=== PATIENT | female | born 1960 | race Caucasian/White ===

== ENCOUNTER → 2016-06-30 | Outpatient (CLI) | payer OTHER ==
[2016-06-30 12:29] LABS: BASO # 0.1 (0.0-0.2); BASO % 1.5 % (0.0-2.0); EOS # 0.2 (0.0-0.7); EOS % 3.9 % (0-4.0); GRAN # 3.1 (1.4-6.5); GRAN % 52.9 % (42.2-75.2); HEMATOCRIT 41.4 % (37.0-47.0); HEMOGLOBIN 13.8 g/dl (12.5-16.0); LYMPH % 33.8 % (20.0-51.0); MEAN CELL VOLUME 87 fl (80.0-100.0); MEAN CORPUSCULAR HEMOGLOBIN 29 pg (27.0-31.0); MEAN CORPUSCULAR HGB CONC 33 g/dl (33.0-37.0); MEAN PLATELET VOLUME 9.8 fl (7.4-10.4); MONO # 0.5 (0.1-0.6); MONO % 7.7 % (1.7-9.3); PLATELET COUNT 327 K/mm3 (130-400); RED BLOOD COUNT 4.77 M/mm3 (4.10-5.30); WHITE BLOOD COUNT 5.9 K/mm3 (4.8-10.8)
[2016-06-30 12:34] LABS: PH 5 (5-8); URINE APPEARANCE Hazy; URINE BACTERIA Rare /hpf; URINE BILIRUBIN Negative (NEGATIVE); URINE BLOOD Negative (NEGATIVE); URINE COLOR Yellow; URINE GLUCOSE 3+ (NEGATIVE); URINE KETONE Negative (NEGATIVE); URINE RBC 0-2 /hpf; URINE UROBILINOGEN Negative (NEGATIVE); URINE WBC 0-2 /hpf
[2016-06-30 12:58] LABS: ADJUSTED CALCIUM 9.5 mg/dL (8.4-10.2); ALBUMIN 4.5 gm/dL (3.5-5.0); BILIRUBIN,TOTAL 0.8 mg/dL (0.0-1.0); CALCIUM 9.9 mg/dL (8.4-10.2); CREATININE, serum 0.75 mg/dL (0.52-1.25); TOTAL PROTEIN 7.4 gm/dL (6.4-8.2)
[2016-06-30 13:34] LABS: THYROID STIMULATING HORMONE 1.56 uIU/mL (0.465-4.680)
[2016-07-02 21:51] LABS: CREATININE OTHER SOURCE 55 mg/dL (())
== END ==
LOC: COL.LAB 11:36
PROVIDERS: Internal Medicine
DX: Z00.00 Encounter for general adult medical examination without abnormal findings (principal); Z11.59 Encounter for screening for other viral diseases; E11.9 Type 2 diabetes mellitus without complications

== ENCOUNTER → 2016-12-30 | Outpatient (CLI) | payer OTHER | LOC: COL.LAB 15:02 | DX: E11.42 Type 2 diabetes mellitus with diabetic polyneuropathy (principal) ==

== ENCOUNTER → 2017-07-31 | Outpatient (CLI) | payer OTHER ==
[2017-07-31 16:55] LABS: COLLECTION METHOD CLEAN CATCH
[2017-07-31 16:55] LABS: BASO # 0.1 (0.0-0.2); BASO % 1.2 % (0.0-2.0); EOS # 0.4 (0.0-0.7); EOS % 4.6 % (0-4.0); GRAN # 5.7 (1.4-6.5); GRAN % 66.9 % (42.2-75.2); HEMATOCRIT 42.4 % (37.0-47.0); HEMOGLOBIN 14.3 g/dl (12.5-16.0); LYMPH # 1.8 (1.2-3.4); LYMPH % 21.1 % (20.0-51.0); MEAN CELL VOLUME 88 fl (80.0-100.0); MEAN CORPUSCULAR HEMOGLOBIN 30 pg (27.0-31.0); MEAN CORPUSCULAR HGB CONC 34 g/dl (33.0-37.0); MEAN PLATELET VOLUME 9.4 fl (7.4-10.4); MONO # 0.5 (0.1-0.6); MONO % 5.7 % (1.7-9.3); PLATELET COUNT 318 K/mm3 (130-400); RED BLOOD COUNT 4.83 M/mm3 (4.10-5.30); REDCELL DISTRIBUTION WIDTH-CV 13.1 % (11.5-14.5)
[2017-07-31 17:04] LABS: MUCOUS Present /lpf; PH 7 (5-8); URINE APPEARANCE Clear; URINE BACTERIA Many /hpf; URINE BILIRUBIN Negative (NEGATIVE); URINE BLOOD Negative (NEGATIVE); URINE COLOR Yellow; URINE GLUCOSE Negative (NEGATIVE); URINE KETONE Negative (NEGATIVE); URINE LEUKOCYTE ESTERASE 2+ (NEGATIVE); URINE NITRATE Negative (NEGATIVE); URINE PROTEIN(semi-quant) Negative (NEGATIVE); URINE RBC None Seen /hpf; URINE UROBILINOGEN Negative (NEGATIVE)
[2017-07-31 17:12] LABS: ALBUMIN 4.9 gm/dL (3.5-5.0); BILIRUBIN,TOTAL 0.4 mg/dL (0.0-1.0); CALCIUM 9.6 mg/dL (8.4-10.2); CREATININE, serum 0.61 mg/dL (0.52-1.25); POTASSIUM 4.4 mmol/L (3.4-5.0); TOTAL PROTEIN 7.6 gm/dL (6.4-8.2)
[2017-07-31 17:40] LABS: THYROID STIMULATING HORMONE 1.59 uIU/mL (0.465-4.680)
[2017-08-01 00:48] LABS: URINE MICROALBUMIN 9.7 mg/dL (0.0-1.7)
== END ==
LOC: COL.LAB 15:39
PROVIDERS: Internal Medicine
DX: Z00.00 Encounter for general adult medical examination without abnormal findings (principal); E11.42 Type 2 diabetes mellitus with diabetic polyneuropathy

== ENCOUNTER → 2017-11-04 | Outpatient (CLI) | payer OTHER | LOC: COL.LAB 11:29 | DX: Z01.812 Encounter for preprocedural laboratory examination (principal) ==

== ENCOUNTER 2017-11-06 11:13 | Outpatient (RCR) | payer OTHER | END 2017-11-07 08:54 | disposition home or self-care (01) | LOC: WSPT 11:13 | DX: Z01.818 Encounter for other preprocedural examination (principal); M17.12 Unilateral primary osteoarthritis, left knee ==

== ENCOUNTER 2017-12-26 15:14 | Inpatient (IN) | payer OTHER ==
[~2017-12-26] VITALS: Ht 170.2 cm; Wt 124.0 kg
[2018-01-13] MEDS ORDERED: ZESTORETIC 25 M1 TAB PO (23:36)
[2018-01-13] MEDS ORDERED: LIPITOR20 MG PO (23:36)
[2018-01-13] MEDS ORDERED: COREG12.5 MG PO (23:37)
[2018-01-13] MEDS ORDERED: NORVASC 10MG10 MG PO (23:37)
[2018-01-13] MEDS ORDERED: ULTRAM 50MG TAB50 MG PO (23:38)
[2018-01-13] MEDS ORDERED: BYDUREON P2 MG/0.65 SQ (23:38)
[2018-01-13] MEDS ORDERED: TRESIBA FL200 UNIT/1 SQ (23:39)
[2018-01-13] MEDS ORDERED: GLUCOPHAGE1000 MG PO (23:40)
[2018-01-14] VITALS (12 sets, daily range): BP systolic 124–168; BP diastolic 55–80; PULSE 62–77; TEMP 97.6–98.8
[2018-01-15 03:28] VITALS: BP 157/68; PULSE 75; TEMP 99
[2018-01-15 07:32] LABS: HEMATOCRIT 39.3 % (37.0-47.0); HEMOGLOBIN 13.2 g/dl (12.5-16.0)
[2018-01-15 08:01] VITALS: BP 143/72; PULSE 80; TEMP 99
[2018-01-15 11:47] VITALS: BP 133/59; PULSE 63; TEMP 97.6
[2018-01-15 16:19] VITALS: BP 122/50; PULSE 69; TEMP 97.7
[2018-01-15 19:15] VITALS: BP 109/49; PULSE 68; TEMP 98.4
[2018-01-16 00:20] VITALS: BP 104/50; PULSE 72; TEMP 98.5
[2018-01-16 04:44] VITALS: BP 108/57; PULSE 76; TEMP 98
[2018-01-16 07:27] LABS: HEMATOCRIT 33.9 % (37.0-47.0); HEMOGLOBIN 11.1 g/dl (12.5-16.0)
[2018-01-16 07:59] VITALS: BP 113/50; PULSE 72; TEMP 98.7
[2018-01-16 12:23] VITALS: BP 115/54; PULSE 72; TEMP 98.1
[2018-01-16 15:55] VITALS: BP 119/51; PULSE 75; TEMP 98.2
[2018-01-16 20:11] VITALS: BP 115/62; PULSE 76; TEMP 98.6
[2018-01-17 04:41] VITALS: BP 145/67; PULSE 81; TEMP 98.6
[2018-01-17 07:29] LABS: HEMOGLOBIN 11.2 g/dl (12.5-16.0)
[2018-01-17 07:32] LABS: HEMATOCRIT 33.1 % (37.0-47.0)
[2018-01-17 08:48] VITALS: BP 131/70; PULSE 82; TEMP 98.3
[2018-01-17 12:40] VITALS: BP 99/58; PULSE 71; TEMP 98.2
== END 2018-01-17 15:58 | disposition home or self-care (01) | DRG 470 ==
LOC: JCC 01-14 05:17
PROVIDERS: Orthopaedic Surgery Sports Medicine
PROC: 0SRD0J9 Replacement of Left Knee Joint with Synthetic Substitute, Cemented, Open Approach (ICD-10-PCS; principal; 2018-01-14 08:00)
DX: M17.12 Unilateral primary osteoarthritis, left knee (principal); I10 Essential (primary) hypertension; E11.9 Type 2 diabetes mellitus without complications; Z87.891 Personal history of nicotine dependence
CPT/HCPCS: A9284; C1713; C1776; J1170; J1815; J1885; J2250; J2405; J2704; J2765; J3010; J7030

== ENCOUNTER 2018-01-01 13:32 | Outpatient (RCR) | payer OTHER ==
[2018-01-13] MEDS ORDERED: LIPITOR20 MG PO (23:36)
[2018-01-13] MEDS ORDERED: ZESTORETIC 25 M1 TAB PO (23:36)
[2018-01-13] MEDS ORDERED: NORVASC 10MG10 MG PO (23:37)
[2018-01-13] MEDS ORDERED: COREG12.5 MG PO (23:37)
[2018-01-13] MEDS ORDERED: ULTRAM 50MG TAB50 MG PO (23:38)
[2018-01-13] MEDS ORDERED: BYDUREON P2 MG/0.65 SQ (23:38)
[2018-01-13] MEDS ORDERED: TRESIBA FL200 UNIT/1 SQ (23:39)
[2018-01-13] MEDS ORDERED: GLUCOPHAGE1000 MG PO (23:40)
== END 2018-01-21 08:25 | disposition home or self-care (01) ==
LOC: WSPT 13:32
DX: Z01.818 Encounter for other preprocedural examination (principal)

== ENCOUNTER → 2018-01-12 | Outpatient (CLI) | payer OTHER ==
[~2018-01-12] MED LIST: BYDUREON P2 MG/0.65 SQ; COREG12.5 MG PO; GLUCOPHAGE1000 MG PO; LIPITOR20 MG PO; NORVASC 10MG10 MG PO; TRESIBA FL200 UNIT/1 SQ; ULTRAM 50MG TAB50 MG PO; ZESTORETIC 25 M1 TAB PO
== END ==
LOC: COL.LAB 15:05
DX: Z01.812 Encounter for preprocedural laboratory examination (principal)

== ENCOUNTER 2018-03-13 11:00 | Outpatient (RCR) | payer BC, OTHER | END 2018-03-13 11:55 | disposition home or self-care (01) | LOC: WSC 11:00 | DX: Z47.1 Aftercare following joint replacement surgery (principal); Z96.652 Presence of left artificial knee joint | CPT/HCPCS: G0283-GP ==

== ENCOUNTER → 2018-04-15 | Outpatient (CLI) | payer BC, OTHER | LOC: COL.LAB 21:00 | DX: E11.42 Type 2 diabetes mellitus with diabetic polyneuropathy (principal) ==

== ENCOUNTER → 2018-08-24 | Outpatient (CLI) | payer BC ==
[2018-08-24 14:16] LABS: COLLECTION METHOD CLEAN CATCH
[2018-08-24 14:18] LABS: BASO # 0.1 (0.0-0.2); BASO % 1.4 % (0.0-2.0); EOS # 0.3 (0.0-0.7); EOS % 5.1 % (0-4.0); GRAN # 4.1 (1.4-6.5); GRAN % 65.9 % (42.2-75.2); HEMATOCRIT 41.3 % (37.0-47.0); HEMOGLOBIN 13.9 g/dl (12.5-16.0); LYMPH # 1.1 (1.2-3.4); MEAN CELL VOLUME 84 fl (80.0-100.0); MEAN CORPUSCULAR HEMOGLOBIN 28 pg (27.0-31.0); MEAN CORPUSCULAR HGB CONC 34 g/dl (33.0-37.0); MEAN PLATELET VOLUME 9.4 fl (7.4-10.4); MONO # 0.6 (0.1-0.6); MONO % 9.1 % (1.7-9.3); PLATELET COUNT 313 K/mm3 (130-400); RED BLOOD COUNT 4.91 M/mm3 (4.10-5.30); REDCELL DISTRIBUTION WIDTH-CV 12.9 % (11.5-14.5)
[2018-08-24 14:21] LABS: MUCOUS Present /lpf; PH 5 (5-8); SQUAMOUS EPITHELIAL 0-2 /hpf; URINE APPEARANCE Clear; URINE BACTERIA None Seen /hpf; URINE BILIRUBIN Negative (NEGATIVE); URINE BLOOD Negative (NEGATIVE); URINE COLOR Yellow; URINE GLUCOSE Negative (NEGATIVE); URINE KETONE Negative (NEGATIVE); URINE LEUKOCYTE ESTERASE Negative (NEGATIVE); URINE NITRATE Negative (NEGATIVE); URINE PROTEIN(semi-quant) Negative (NEGATIVE); URINE RBC 0-2 /hpf; URINE UROBILINOGEN Negative (NEGATIVE)
[2018-08-24 14:34] LABS: ALBUMIN 4.5 gm/dL (3.5-5.0); BILIRUBIN,TOTAL 0.3 mg/dL (0.0-1.0); CALCIUM 9.6 mg/dL (8.4-10.2); CHOLESTEROL RISK RATIO 2.7; CREATININE, serum 0.53 mg/dL (0.52-1.25); POTASSIUM 4.1 mmol/L (3.4-5.0); TOTAL PROTEIN 7.4 gm/dL (6.4-8.2)
[2018-08-24 15:02] LABS: THYROID STIMULATING HORMONE 1.99 uIU/mL (0.465-4.680)
[2018-08-25 13:09] LABS: URINE MICROALBUMIN 0.6 mg/dL (0.0-1.7)
== END ==
LOC: COL.LAB 13:18
PROVIDERS: Internal Medicine
DX: Z00.00 Encounter for general adult medical examination without abnormal findings (principal); E11.59 Type 2 diabetes mellitus with other circulatory complications

== ENCOUNTER 2018-09-19 17:54 | Emergency (ER) | payer BC ==
[~2018-09-19] VITALS: Ht 172.7 cm; Wt 127.3 kg
[2018-09-19 18:06] VITALS: TEMP 98.7
[2018-09-19] MEDS ORDERED: NOVOLIN 70100 UNIT/2 SQ (20:19)
[2018-09-19 20:51] LABS: BASO # 0.1 (0.0-0.2); BASO % 0.9 % (0.0-2.0); EOS # 0.3 (0.0-0.7); EOS % 3.7 % (0-4.0); GRAN # 6.4 (1.4-6.5); GRAN % 69.7 % (42.2-75.2); HEMATOCRIT 40.4 % (37.0-47.0); HEMOGLOBIN 13.7 g/dl (12.5-16.0); LYMPH # 1.6 (1.2-3.4); LYMPH % 17.8 % (20.0-51.0); MEAN CELL VOLUME 85 fl (80.0-100.0); MEAN CORPUSCULAR HEMOGLOBIN 29 pg (27.0-31.0); MEAN CORPUSCULAR HGB CONC 34 g/dl (33.0-37.0); MEAN PLATELET VOLUME 9.7 fl (7.4-10.4); MONO # 0.7 (0.1-0.6); MONO % 7.6 % (1.7-9.3); PLATELET COUNT 320 K/mm3 (130-400); RED BLOOD COUNT 4.74 M/mm3 (4.10-5.30); REDCELL DISTRIBUTION WIDTH-CV 12.8 % (11.5-14.5)
[2018-09-19 21:01] LABS: ALANINE AMINOTRANSFERASE 29 U/L (9-52); ALBUMIN 4.5 gm/dL (3.5-5.0); ALKALINE PHOSPHATASE 68 U/L (50-136); ANION GAP 9 mmol/L (7-16); AST,SGOT 35 U/L (15-37); BILIRUBIN,TOTAL 0.4 mg/dL (0.0-1.0); BLOOD UREA NITROGEN 13 mg/dL (7-17); CALCIUM 11.2 mg/dL (8.4-10.2); CARBON DIOXIDE 32 mmol/L (22-30); CHLORIDE 97 mmol/L (98-107); CREATININE, serum 0.62 (0.52-1.25); GLUCOSE 169 mg/dL (74-106); LIPASE 207 U/L (23-300); SODIUM 138 mmol/L (137-145); TOTAL PROTEIN 7.4 gm/dL (6.4-8.2)
[2018-09-19 21:11] LABS: TROPONIN-I < 0.012 ng/mL (0.000-0.035)
[2018-09-19 22:12] VITALS: BP 142/65; PULSE 73
== END 2018-09-19 22:10 | disposition home or self-care (01) ==
LOC: COL.ER 17:54
PROVIDERS: Emergency Medicine
DX: M25.511 Pain in right shoulder (principal); M54.12 Radiculopathy, cervical region; E11.9 Type 2 diabetes mellitus without complications; I10 Essential (primary) hypertension; E78.00 Pure hypercholesterolemia, unspecified; Z79.4 Long term (current) use of insulin; Z79.84 Long term (current) use of oral hypoglycemic drugs
CPT/HCPCS: J1885

== ENCOUNTER → 2018-12-10 | Outpatient (CLI) | payer BC ==
[~2018-12-10] MED LIST changes: +NOVOLIN 70100 UNIT/2 SQ
== END ==
LOC: MC.RAD 13:31
DX: Z12.31 Encounter for screening mammogram for malignant neoplasm of breast (principal)

== ENCOUNTER 2019-04-08 08:15 | Outpatient (RCR) | payer BC | END 2019-05-07 11:06 | disposition home or self-care (01) | LOC: WSC 08:15 | DX: M47.26 Other spondylosis with radiculopathy, lumbar region (principal); M54.41 Lumbago with sciatica, right side ==

== ENCOUNTER → 2021-01-09 | Outpatient (CLI) | payer BC ==
[~2021-01-09] MED LIST changes: +ALDACTONE 25MG25 M1 PO; +ASPIRIN E.C. 8181 MG PO; +COLESTID 1GM1 G PO; +LANTUS100 U/ML SQ; +NEURONTIN100 MG/CAP PO; +NOVOLOG 100U100 U/M1 SQ; +OZEMPIC1 MG/0.75 SQ; +ZESTORETIC 12.51 TA1 PO; -ZESTORETIC 25 M1 TAB PO
[2021-01-09 11:20] LABS: BASO # 0.1 (0.0-0.2); BASO % 0.9 % (0.0-2.0); EOS # 0.3 (0.0-0.7); EOS % 3.4 % (0-4.0); GRAN # 6.3 (1.4-6.5); GRAN % 72.4 % (42.2-75.2); HEMATOCRIT 38.8 % (37.0-47.0); HEMOGLOBIN 13.1 g/dl (12.5-16.0); LYMPH # 1.4 (1.2-3.4); LYMPH % 15.9 % (20.0-51.0); MEAN CELL VOLUME 88 fl (80.0-100.0); MEAN CORPUSCULAR HEMOGLOBIN 30 pg (27.0-31.0); MEAN CORPUSCULAR HGB CONC 34 g/dl (33.0-37.0); MEAN PLATELET VOLUME 9.5 fl (7.4-10.4); MONO # 0.6 (0.1-0.6); MONO % 6.8 % (1.7-9.3); PLATELET COUNT 314 K/mm3 (130-400); RED BLOOD COUNT 4.43 M/mm3 (4.10-5.30); REDCELL DISTRIBUTION WIDTH-CV 13.1 % (11.5-14.5)
[2021-01-09 11:31] LABS: ALBUMIN 4.4 gm/dL (3.5-5.0); BILIRUBIN,TOTAL 0.3 mg/dL (0.0-1.0); CALCIUM 9.4 mg/dL (8.4-10.2); CREATININE, serum 0.82 (0.52-1.25); POTASSIUM 5.5 mmol/L (3.4-5.0); TOTAL PROTEIN 7.1 gm/dL (6.4-8.2)
== END ==
LOC: COL.LAB 10:33
PROVIDERS: Family Medicine
DX: N30.00 Acute cystitis without hematuria (principal)

== ENCOUNTER 2021-04-30 12:04 | Observation (INO) | payer BC ==
[~2021-04-30] VITALS: Ht 172.7 cm; Wt 125.0 kg
[~2021-04-30 12:04] MED LIST changes: -ALDACTONE 25MG25 M1 PO; -ASPIRIN E.C. 8181 MG PO; -COLESTID 1GM1 G PO; -LANTUS100 U/ML SQ; -NEURONTIN100 MG/CAP PO; -NOVOLOG 100U100 U/M1 SQ; -OZEMPIC1 MG/0.75 SQ
[2021-04-30 12:41] LABS: BASO # 0.1 K/mm3 (0.0-0.2); BASO % 1.6 % (0.0-2.0); EOS # 0.3 K/mm3 (0.0-0.7); EOS % 4.4 % (0-4.0); GRAN # 4.5 K/mm3 (1.4-6.5); GRAN % 67.2 % (42.2-75.2); HEMATOCRIT 40.9 % (37.0-47.0); HEMOGLOBIN 14.1 g/dl (12.5-16.0); LYMPH # 1.3 K/mm3 (1.2-3.4); LYMPH % 19.5 % (20.0-51.0); MEAN CELL VOLUME 85 fl (80.0-100.0); MEAN CORPUSCULAR HEMOGLOBIN 29 pg (27.0-31.0); MEAN CORPUSCULAR HGB CONC 35 g/dl (33.0-37.0); MEAN PLATELET VOLUME 9.3 fl (7.4-10.4); MONO # 0.5 K/mm3 (0.1-0.6); MONO % 7.2 % (1.7-9.3); PLATELET COUNT 332 K/mm3 (130-400); REDCELL DISTRIBUTION WIDTH-CV 12.4 % (11.5-14.5)
[2021-04-30 13:00] LABS: ALBUMIN 4.4 gm/dL (3.4-4.8); BILIRUBIN,TOTAL 0.4 mg/dL (0.2-1.2); CREATININE, serum 0.82 mg/dL (0.57-1.11); POTASSIUM 4.5 mmol/L (3.5-4.5); TOTAL PROTEIN 7.7 gm/dL (6.2-8.1)
[2021-04-30] MEDS ORDERED: LANTUS100 U/ML SQ (18:38)
[2021-04-30] MEDS ORDERED: NEURONTIN100 MG/CAP PO (18:40)
[2021-04-30] MEDS ORDERED: COLESTID 1GM1 G PO (18:40)
[2021-04-30] MEDS ORDERED: OZEMPIC1 MG/0.75 SQ (18:41)
[2021-04-30] MEDS ORDERED: ALDACTONE 25MG25 M1 PO (18:42)
[2021-04-30] MEDS ORDERED: NOVOLOG 100U100 U/M1 SQ (18:44)
[2021-04-30 21:53] VITALS: BP 157/98; PULSE 79; TEMP 98.2
[2021-05-01 00:31] VITALS: BP 154/85; PULSE 79; TEMP 97.6
[2021-05-01 06:03] LABS: BASO # 0.1 K/mm3 (0.0-0.2); BASO % 0.8 % (0.0-2.0); EOS # 0.3 K/mm3 (0.0-0.7); EOS % 3.8 % (0-4.0); GRAN # 5.1 K/mm3 (1.4-6.5); GRAN % 58.8 % (42.2-75.2); HEMATOCRIT 37.6 % (37.0-47.0); HEMOGLOBIN 12.6 g/dl (12.5-16.0); LYMPH # 2.4 K/mm3 (1.2-3.4); LYMPH % 27.7 % (20.0-51.0); MEAN CELL VOLUME 87 fl (80.0-100.0); MEAN CORPUSCULAR HEMOGLOBIN 29 pg (27.0-31.0); MEAN CORPUSCULAR HGB CONC 34 g/dl (33.0-37.0); MEAN PLATELET VOLUME 10.3 fl (7.4-10.4); MONO # 0.8 K/mm3 (0.1-0.6); MONO % 8.7 % (1.7-9.3); PLATELET COUNT 320 K/mm3 (130-400); RED BLOOD COUNT 4.31 M/mm3 (4.10-5.30); REDCELL DISTRIBUTION WIDTH-CV 12.4 % (11.5-14.5)
[2021-05-01 06:16] VITALS: BP 153/77; PULSE 74; TEMP 98
[2021-05-01 06:27] LABS: CHOLESTEROL RISK RATIO 2.7
[2021-05-01 06:32] LABS: CALCIUM 9.3 mg/dL (8.4-10.2); CREATININE, serum 0.86 mg/dL (0.57-1.11); MAGNESIUM 1.7 mg/dL (1.6-2.6)
--- NOTE | 2021-05-01 07:15 | NUR ---
Pt. progressing w/ plan of care. Pt. reports feeling better today. Plan for pt. to get ECHO, US carotid, and MRI of the brain today. This RN called MRI department, pt OK to have food/drink today. Pt. requesting ice water. Ice water provided. Pt. denies further needs at this time. Pt. has been OOB independently w/ steady gait. Non-slip socks provided. Call light and belongings in reach.
--- NOTE | 2021-05-01 07:31 | NUR ---
pt admitted to room 346 @1845 for AMS, pt reported she could not remember events from saturday/saturday, however, this am, pt is stating she can't really remember most of the week. pt has been up in room to restroom, no changes in neuro status since admission. will be having further tests done today, educated on what to expect.
[2021-05-01 07:59] VITALS: BP 146/69; PULSE 69; TEMP 98.1
--- NOTE | 2021-05-01 10:41 | NUR ---
cattle care worker met with patient and patient's daughter Jolly ([phone]) at bedside. Patient reports that she is fully independent with her activities of daily living and she does not utilize any DME to assist with mobility. Patient has no oxygen needs. Pcp is and she utilizes [facility] for medications. Patient does not have a DPO[facility]-HC established but is interested in establishing one. She has two grown children, Jolly her daughter and a son that she doesn't have a relationship with. Education and form provided to the patient. cattle care worker will follow up to sign form.
[2021-05-01 12:00] VITALS: BP 144/85; PULSE 74; TEMP 98.3
--- NOTE | 2021-05-01 12:05 | NUR ---
Pt. progressing w/ plan of care. Pt. got ECHO and carotid US today. BROOKE Damico updated w/ plan of care. Pt. denies needs at this time, call light and belongings in reach.
[2021-05-01] MEDS ORDERED: ASPIRIN E.C. 8181 MG PO (14:22)
[2021-05-01 15:29] VITALS: BP 145/70; PULSE 70; TEMP 97.6
--- NOTE | 2021-05-01 16:21 | NUR ---
Patient completed DPO[employer] listing her daughter and her son in law as her agents. This sw and BAUTISTA Elizabeth witnessed the patient sign form. Original and copies given to the patient and copy placed in patient's chart.
--- NOTE | 2021-05-01 18:50 | NUR ---
Pt. has orders to discharge home. Paperwork reviewed with the patient. IV removed, site c/d/i. Tele removed. Plan for pt. to follow up w/ PCP and neurology outpatient. All questions answered. Plan for a [facility] staff member to walk patient out when her ride is here.
== END 2021-05-01 19:00 | disposition home or self-care (01) ==
LOC: COL.ER 12:04 → SURG 14:17
PROVIDERS: Internal Medicine; Student in an Organized Health Care Education/Training Program; ADMIT Internal Medicine
DX: R41.3 Other amnesia (principal); E11.9 Type 2 diabetes mellitus without complications; I10 Essential (primary) hypertension; E78.5 Hyperlipidemia, unspecified; E66.9 Obesity, unspecified; E78.00 Pure hypercholesterolemia, unspecified; E78.1 Pure hyperglyceridemia; G47.30 Sleep apnea, unspecified; Z79.4 Long term (current) use of insulin; Z79.84 Long term (current) use of oral hypoglycemic drugs; Z87.891 Personal history of nicotine dependence; Z79.899 Other long term (current) drug therapy; Z83.3 Family history of diabetes mellitus
CPT/HCPCS: A9585; G0378; J1650; J1815

== ENCOUNTER → 2024-01-20 | Outpatient (CLI) | payer BC ==
[~2024-01-20] MED LIST changes: +ALDACTONE 25MG25 M1 PO; +ASPIRIN E.C. 8181 MG PO; +COLESTID 1GM1 G PO; +LANTUS100 U/ML SQ; +NEURONTIN100 MG/CAP PO; +NOVOLOG 100U100 U/M1 SQ; +OZEMPIC1 MG/0.75 SQ
[2024-01-20 16:20] LABS: HEMATOCRIT 41.9 % (37.0-47.0); HEMOGLOBIN 14.3 g/dl (12.5-16.0); MEAN CELL VOLUME 85 fl (80.0-100.0); MEAN CORPUSCULAR HEMOGLOBIN 29 pg (27-31); MEAN CORPUSCULAR HGB CONC 34 g/dl (33.0-37.0); MEAN PLATELET VOLUME 9.9 fl (7.4-10.4); PLATELET COUNT 338 K/mm3 (130-400); RED BLOOD COUNT 4.94 M/mm3 (4.10-5.30); REDCELL DISTRIBUTION WIDTH-CV 12.9 % (11.5-14.5)
[2024-01-20 16:46] LABS: ALBUMIN 4.2 g/dL (3.4-4.8); BILIRUBIN,TOTAL 0.5 mg/dL (0.2-1.2); CREATININE, serum 1.23 mg/dL (0.57-1.11); POTASSIUM 4.3 mEq/L (3.5-4.5); TOTAL PROTEIN 7.3 g/dl (6.2-8.1)
== END ==
LOC: COL.RAD 15:02
PROVIDERS: Internal Medicine
DX: K57.30 Diverticulosis of large intestine without perforation or abscess without bleeding (principal)

== ENCOUNTER 2024-03-22 09:45 | Emergency (ER) | payer BC ==
[~2024-03-22] VITALS: Ht 172.7 cm; Wt 131.8 kg
[2024-03-22 10:04] VITALS: TEMP 97.7
[2024-03-22] MEDS ORDERED: NS 1,000 ML IV ONE (11:15)
[2024-03-22 11:45] LABS: BASO # 0.1 K/mm3 (0.0-0.2); BASO % 1.2 % (0.0-2.0); EOS # 0.3 K/mm3 (0.0-0.7); EOS % 3.9 % (0.0-4.0); GRAN # 5.1 K/mm3 (1.4-6.5); GRAN % 67.1 % (42.2-75.2); HEMATOCRIT 41.3 % (37.0-47.0); HEMOGLOBIN 13.8 g/dl (12.5-16.0); LYMPH # 1.5 K/mm3 (1.2-3.4); LYMPH % 19.3 % (20.0-51.0); MEAN CELL VOLUME 87 fl (80.0-100.0); MEAN CORPUSCULAR HEMOGLOBIN 29 pg (27-31); MEAN CORPUSCULAR HGB CONC 33 g/dl (33.0-37.0); MEAN PLATELET VOLUME 9.5 fl (7.4-10.4); MONO # 0.6 K/mm3 (0.1-0.6); MONO % 8.2 % (1.7-9.3); PLATELET COUNT 322 K/mm3 (130-400); RED BLOOD COUNT 4.75 M/mm3 (4.10-5.30)
[2024-03-22 12:03] LABS: ALBUMIN 3.8 g/dL (3.4-4.8); BILIRUBIN,TOTAL 0.4 mg/dL (0.2-1.2); CREATININE, serum 1.05 mg/dL (0.57-1.11); POTASSIUM 4.3 mEq/L (3.5-4.5); TOTAL PROTEIN 6.6 g/dl (6.2-8.1)
[2024-03-22] MEDS ORDERED: Iohexol 300 - 100 ML VIAL IV ONE (12:18)
[2024-03-22] MEDS ORDERED: NS 100 ML IV SCH (12:18)
[2024-03-22] MEDS ORDERED: Ketorolac 15 MG/ML VIAL IV ONE (12:30)
[2024-03-22 13:02] LABS: PH 5.5 (5.0-8.5); URINE APPEARANCE CLEAR (CLEAR/HAZY); URINE BLOOD NEGATIVE (NEGATIVE); URINE COLOR YELLOW (YELLOW); URINE GLUCOSE 3+ (NEGATIVE); URINE KETONE NEGATIVE (NEGATIVE); URINE NITRATE NEGATIVE (NEGATIVE); URINE PROTEIN(semi-quant) NEGATIVE (NEGATIVE); URINE UROBILINOGEN 0.2 E.U/dL (0.2-1.0)
[2024-03-22 13:19] LABS: COLLECTION METHOD CLEAN CATCH
[2024-03-22 14:06] VITALS: BP 117/89; PULSE 67
== END 2024-03-22 14:07 | disposition home or self-care (01) ==
LOC: COL.ER 09:45
PROVIDERS: Physician Assistant
DX: R10.32 Left lower quadrant pain (principal)
CPT/HCPCS: J1885; J7030; Q9967